=== PATIENT | female | born 1945 | race Caucasian/White ===

== ENCOUNTER 2018-03-16 13:03 | Inpatient (IN) | payer OTHER ==
[~2018-03-16] VITALS: Ht 144.8 cm; Wt 42.6 kg
[2018-03-16 13:04] VITALS: BP 203/85
[2018-03-16] MEDS ORDERED: METF500T PO (13:21)
[2018-03-16] MEDS ORDERED: INSU100S22 SC (13:21)
[2018-03-16] MEDS ORDERED: VAS5 PO (13:21)
[2018-03-16] MEDS ORDERED: NAPH30DR3 OP (13:21)
[2018-03-16] MEDS ORDERED: SIMV10TA6 PO (13:21)
[2018-03-16] MEDS ORDERED: ASPI81CT20 PO (13:21)
[2018-03-16] MEDS ORDERED: NACL 0.9% 1,000 ML IV SCH (13:32)
[2018-03-16 13:52] LABS: BASOPHILS % (AUTO) 0.4 % (0.0-2.0); EOSINOPHILS % (AUTO) 0.4 % (0.0-4.0); HEMATOCRIT 37.6 % (36-48); HEMOGLOBIN 12.3 g/dL (12.0-16.0); LYMPHOCYTES # (AUTO) 1.4 K/uL (2.5-16.5); LYMPHOCYTES % (AUTO) 23.3 % (20.5-51.1); MEAN CORPUSCULAR HEMOGLOBIN 29 pg (27-31); MEAN CORPUSCULAR HGB CONC 33 g/dL (33-37); MONOCYTES # (AUTO) 0.4 K/uL (0.8-1.0); MONOCYTES % (AUTO) 5.8 % (1.7-9.3); NEUTROPHILS # (AUTO) 4.4 K/uL (1.8-7.7); NEUTROPHILS % (AUTO) 70.1 % (42.2-75.2); PLATELET COUNT (AUTO) 275 K/uL (140-450); RED BLOOD CELL COUNT(AUTO) 4.23 MIL/uL (4.20-5.40); RED CELL DISTRIBUTION WIDTH 13.2 % (11.6-13.7); WHITE BLOOD COUNT (AUTO) 6.2 K/uL (4.8-10.8)
[2018-03-16 14:14] LABS: ALBUMIN 3.7 g/dL (3.4-5.0); ANION GAP 15.4 (8-16); ASPARTATE AMINOTRANSFERASE 37 U/L (15-37); CARBON DIOXIDE 28.4 mmol/L (21-32); CHLORIDE 96 mmol/L (98-107); CREATININE 0.9 mg/dL (0.6-1.3); POTASSIUM 3.8 mmol/L (3.5-5.1); SODIUM SERUM 136 mmol/L (136-145); TOTAL BILIRUBIN 0.5 mg/dL (0.0-1.0); UREA NITROGEN, BLOOD 25 mg/dL (7-18)
[2018-03-16 14:16] LABS: GLUCOSE 488 mg/dL (74-106)
[2018-03-16 14:24] LABS: APPEARANCE,URINE HAZY (CLEAR); COLOR,URINE YELLOW (YELLOW); PH,URINE 6.5 (5.0-9.0)
[2018-03-16 14:25] LABS: BILIRUBIN,URINE NEGATIVE (NEGATIVE); BLOOD, URINE TRACE (NEGATIVE); LEUKOCYTE ESTERASE ,URINE TRACE (NEGATIVE); NITRITE, URINE NEGATIVE (NEGATIVE); UGLUCOSE 3+ (NEGATIVE)
[2018-03-16 14:28] LABS: PROTHROMBIN TIME 9.4 secs (10.8-13.4)
[2018-03-16 14:31] LABS: RBC,URINE 3-10 (FEW) /HPF (0-5); WBC,URINE 60-80 /HPF (0-5)
[2018-03-16] MEDS ORDERED: cefTRIAXone 1,000 MG VIAL ONE (15:02)
[2018-03-16] MEDS ORDERED: NACL 0.9% 1,000 ML IV ONE (15:35)
[2018-03-16] MEDS ORDERED: DEXTROSE 50% 50 ML SYR IVP PRN (16:15)
[2018-03-16] MEDS ORDERED: ACETAMINOPHEN 325 MG TAB PO PRN (16:15)
[2018-03-16] MEDS ORDERED: ONDANSETRON 4 MG/2 ML VIAL IVP PRN (16:15)
[2018-03-16] MEDS ORDERED: LORazepam 2 MG/ML VIAL IVP PRN (16:15)
[2018-03-16] MEDS: BLOOD GLUCOSE MONITORING 1 DEV DEV FS SCH ×2 (16:30→20:55)
[2018-03-16] MEDS: NACL 0.9% 1,000 ML IV SCH (18:00)
[2018-03-16] MEDS: metFORMIN 500 MG TAB PO SCH (18:13)
[2018-03-16] MEDS: INSULIN LISPRO SLIDING SCALE 100 UNITS/ML VIAL SUBQ PRN (18:16)
[2018-03-16 20:00] VITALS: BP 102/40
[2018-03-16] MEDS ORDERED: SIMVASTATIN 10 MG TAB PO SCH (21:00)
[2018-03-16] MEDS ORDERED: SIMVASTATIN PO SCH (21:00)
[2018-03-16] MEDS ORDERED: MIRTAZAPINE 15 MG TAB PO SCH (21:00)
[2018-03-17] VITALS: BP 140/68
[2018-03-17] MEDS: NACL 0.9% 1,000 ML IV SCH ×2 (03:46→12:13)
[2018-03-17 07:08] LABS: BASOPHILS % (AUTO) 0.7 % (0.0-2.0); EOSINOPHILS # (AUTO) 0.1 K/uL (0-0.4); EOSINOPHILS % (AUTO) 1.1 % (0.0-4.0); HEMATOCRIT 31.1 % (36-48); HEMOGLOBIN 10.5 g/dL (12.0-16.0); LYMPHOCYTES # (AUTO) 1.6 K/uL (2.5-16.5); LYMPHOCYTES % (AUTO) 23.6 % (20.5-51.1); MEAN CORPUSCULAR HEMOGLOBIN 30 pg (27-31); MEAN CORPUSCULAR HGB CONC 34 g/dL (33-37); MEAN CORPUSCULAR VOLUME 87.7 fL (80-94); MONOCYTES # (AUTO) 0.4 K/uL (0.8-1.0); MONOCYTES % (AUTO) 6.3 % (1.7-9.3); NEUTROPHILS # (AUTO) 4.7 K/uL (1.8-7.7); NEUTROPHILS % (AUTO) 68.3 % (42.2-75.2); PLATELET COUNT (AUTO) 215 K/uL (140-450); RED BLOOD CELL COUNT(AUTO) 3.55 MIL/uL (4.20-5.40); RED CELL DISTRIBUTION WIDTH 12.9 % (11.6-13.7); WHITE BLOOD COUNT (AUTO) 6.9 K/uL (4.8-10.8)
[2018-03-17] MEDS: BLOOD GLUCOSE MONITORING 1 DEV DEV FS SCH ×2 (07:30→11:34)
[2018-03-17 08:00] VITALS: BP 154/63
[2018-03-17 08:23] LABS: ANION GAP 7.4 (8-16); CARBON DIOXIDE 30.1 mmol/L (21-32); CHLORIDE 107 mmol/L (98-107); CREATININE 0.6 mg/dL (0.6-1.3); GLUCOSE 145 mg/dL (74-106); POTASSIUM 3.5 mmol/L (3.5-5.1); SODIUM SERUM 141 mmol/L (136-145); UREA NITROGEN, BLOOD 16 mg/dL (7-18)
[2018-03-17] MEDS ORDERED: ASPIRIN 81 MG PO SCH (09:00)
[2018-03-17] MEDS ORDERED: ENOXAPARIN 30 MG/0.3 ML SYR SUBQ SCH (09:00)
[2018-03-17] MEDS ORDERED: ENALAPRIL 5 MG TAB PO SCH (09:00)
[2018-03-17] MEDS ORDERED: ASPIRIN 81 MG TAB.CHEW PO SCH (09:00)
[2018-03-17] MEDS ORDERED: ENOXAPARIN 40 MG/0.4 ML SYR SUBQ SCH (09:00)
[2018-03-17] MEDS: metFORMIN 500 MG TAB PO SCH ×2 (09:08→11:34)
[2018-03-17] MEDS: INSULIN LISPRO SLIDING SCALE 100 UNITS/ML VIAL SUBQ PRN ×2 (09:12→12:00)
[2018-03-17] MEDS ORDERED: MIRT15TA4 PO (13:09)
[2018-03-17] MEDS ORDERED: CIPR500T4 PO (13:10)
[2018-03-17] MEDS ORDERED: PNEUMOCOCCAL VACCINE 23 MCG/0.5 ML VIAL IMVAC SCH (14:05)
== END 2018-03-17 15:00 | disposition home or self-care (01) | DRG 690 ==
LOC: MED 13:03 → MTU 16:16
PROVIDERS: ADMIT Hospitalist; ATTEND Hospitalist
DX: N39.0 Urinary tract infection, site not specified (principal); E11.65 Type 2 diabetes mellitus with hyperglycemia; E78.5 Hyperlipidemia, unspecified; F32.9 Major depressive disorder, single episode, unspecified; F41.9 Anxiety disorder, unspecified; I10 Essential (primary) hypertension; Z79.4 Long term (current) use of insulin; Z79.899 Other long term (current) drug therapy
CPT/HCPCS: 36415; 71045; 80048; 80053; 81001; 82550; 82948; 83605; 83735; 83880; 84484; 85025; 85610; 85730; 87040; 87081; 87086; 87186; 90732; 93005; 96361; 96365; 99285; C1758; J0696; J1650; J1815; J7030; J7060; Q0092

== ENCOUNTER 2018-05-19 23:40 | Emergency (ER) | payer OTHER ==
[~2018-05-19] VITALS: Ht 139.7 cm; Wt 44.0 kg
[~2018-05-19 23:40] MED LIST: ASPI81CT20 PO; CIPR500T4 PO; INSU100S22 SC; METF500T PO; MIRT15TA4 PO; NAPH30DR3 OP; SIMV10TA6 PO; VAS5 PO
[2018-05-19 23:46] VITALS: BP 177/72
[2018-05-19] MEDS ORDERED: [UNRECOGNIZED DRUG - CODE] PO (23:53)
--- NOTE | 2018-05-19 23:57 | NUR ---
72 Y/O M BIB FAMILY WITH C/O MECH FALL FRIDAY CAUSING RT ARM PAIN. BRUSING NOTED, +CMS. CAP REFILL <3. PT AAOX4, STEADY GAIT. RR EVEN/UNLABORED. NO OBVIOUS DEFORMATIES NOTED. ER MADE AWARE.
[2018-05-20] MEDS ORDERED: HYDROcodone/APAP 5/325 MG 1 TAB TAB PO ONE (00:30)
[2018-05-20 02:07] VITALS: BP 177/72
--- NOTE | 2018-05-20 02:07 | NUR ---
Patient discharged with v/s stable. Written and verbal after care instructions given and explained. Patient alert, oriented and verbalized understanding of instructions. Ambulatory with steady gait. All questions addressed prior to discharge. ID band removed. Patient advised to follow up with PMD. Rx of [place] given. Patient educated on indication of medication including possible reaction and side effects. Opportunity to ask questions provided and answered.
== END 2018-05-20 02:07 | disposition home or self-care (01) ==
LOC: MED 23:40
DX: S42.211A Unspecified displaced fracture of surgical neck of right humerus, initial encounter for closed fracture (principal); M25.422 Effusion, left elbow; E11.9 Type 2 diabetes mellitus without complications; I10 Essential (primary) hypertension; Z79.4 Long term (current) use of insulin; Z79.899 Other long term (current) drug therapy; W18.09XA Striking against other object with subsequent fall, initial encounter; Y93.89 Activity, other specified; Y92.009 Unspecified place in unspecified non-institutional (private) residence as the place of occurrence of the external cause; Y99.8 Other external cause status
CPT/HCPCS: 73030; 73080; 99283; Q0092